=== PATIENT | male | born 1965 | race Caucasian/White ===

== ENCOUNTER 2017-07-07 19:07 | Inpatient (IN) | payer BC ==
[2017-07-07] MEDS ORDERED: HEPARIN for IV BOLUS 10,000 UNIT/10 ML VIAL. (19:14)
[2017-07-07 19:16] LABS: ADD MAN DIFF? NO
[2017-07-07 19:18] LABS: BASO # 0.1 x10^3/uL (0.0-0.2); BASO % 1 % (0-3); EOS # 0.4 x10^3/uL (0.0-0.7); EOS % 5 % (0-3); HEMATOCRIT 38.3 % (39.0-53.0); LYMPH # 2.3 x10^3/uL (1.0-4.8); LYMPH % 32 % (24-48); MEAN CORPUSCULAR HEMOGLOBIN 30 pg (25-35); MEAN CORPUSCULAR HGB CONC 34 g/dL (31-37); MEAN CORPUSCULAR VOLUME 88 fL (79-100); MONO # 0.4 x10^3/uL (0.0-1.1); MONO % 5 % (0-9); NEUT % 56 % (31-73); PLATELET COUNT 265 x10^3/uL (140-400); RED BLOOD COUNT 4.34 x10^6/uL (4.30-5.70); RED CELL DISTRIBUTION WIDTH 13.2 % (11.5-14.5); WHITE BLOOD COUNT 7.1 x10^3/uL (4.0-11.0)
[2017-07-07] MEDS: AMIODARONE 150 MG in IV DEXTROSE 5% 100 ML IV (19:24)
[2017-07-07] MEDS: ASPIRIN CHEWABLE 81 MG TABLET. PO (19:25)
[2017-07-07 19:28] LABS: TROPONIN BY ISTAT 0.02 ng/ml (<0.08)
[2017-07-07 19:28] LABS: INR 1.1 (0.8-1.1); PARTIAL THROMBOPLASTIN TIME 25 SEC (24-38); PROTHROMBIN TIME PATIENT 13.8 SEC (11.7-14.0)
[2017-07-07] MEDS ORDERED: MORPHINE SULFATE 4 MG/ML DISP.SYRIN. IV (19:30)
[2017-07-07] MEDS ORDERED: ONDANSETRON PF 4 MG/2 ML VIAL. IV (19:30)
[2017-07-07] MEDS ORDERED: ACETAMINOPHEN 325 MG TABLET. PO (19:30)
[2017-07-07 19:32] LABS: D-DIMER 0.32 ug/mlFEU (0.00-0.50)
[2017-07-07 19:35] LABS: ANION GAP 9 (6-14); BLOOD UREA NITROGEN 25 mg/dL (8-26); CALCIUM 9.1 mg/dL (8.5-10.1); CARBON DIOXIDE 28 mmol/L (21-32); CHLORIDE 104 mmol/L (98-107); GFR 78.8; GLUCOSE 136 mg/dL (70-99); POTASSIUM 3.7 mmol/L (3.5-5.1); SODIUM 141 mmol/L (136-145)
[2017-07-07 19:38] LABS: TROPONINI < 0.017 ng/mL (0.000-0.055)
[2017-07-07 19:40] LABS: NT-PRO BNP 205 pg/mL (0-124)
[2017-07-07] MEDS: AMIODARONE 900 MG in IV DEXTROSE 5% 500 ML IV (19:51)
[2017-07-07 20:02] LABS: THYROID STIM HORMONE (TSH) 3.613 uIU/mL (0.358-3.74)
[2017-07-07] MEDS ORDERED: AMIODARONE 450 MG in IV DEXTROSE 5% 250 ML IV (21:45)
[2017-07-07 23:12] LABS: TROPONINI 0.929 ng/mL (0.000-0.055)
[2017-07-08 01:30] LABS: ADD MAN DIFF? NO
[2017-07-08 01:52] LABS: TROPONINI 1.156 ng/mL (0.000-0.055)
[2017-07-08 03:23] LABS: BASO % 0 % (0-3); EOS # 0.2 x10^3/uL (0.0-0.7); EOS % 4 % (0-3); HEMATOCRIT 36.8 % (39.0-53.0); HEMOGLOBIN 12.6 g/dL (13.0-17.5); LYMPH # 2.1 x10^3/uL (1.0-4.8); LYMPH % 31 % (24-48); MEAN CORPUSCULAR HEMOGLOBIN 30 pg (25-35); MEAN CORPUSCULAR HGB CONC 34 g/dL (31-37); MEAN CORPUSCULAR VOLUME 88 fL (79-100); MONO # 0.4 x10^3/uL (0.0-1.1); MONO % 6 % (0-9); NEUT # 3.9 x10^3uL (1.8-7.7); NEUT % 59 % (31-73); PLATELET COUNT 262 x10^3/uL (140-400); RED BLOOD COUNT 4.18 x10^6/uL (4.30-5.70); RED CELL DISTRIBUTION WIDTH 13.2 % (11.5-14.5); WHITE BLOOD COUNT 6.7 x10^3/uL (4.0-11.0)
[2017-07-08 03:44] LABS: ANION GAP 6 (6-14); BLOOD UREA NITROGEN 20 mg/dL (8-26); CALCIUM 8.5 mg/dL (8.5-10.1); CARBON DIOXIDE 28 mmol/L (21-32); CHLORIDE 107 mmol/L (98-107); CREATININE 0.8 mg/dL (0.7-1.3); GFR 101.9; GLUCOSE 97 mg/dL (70-99); POTASSIUM 4.1 mmol/L (3.5-5.1); SODIUM 141 mmol/L (136-145)
[2017-07-08] MEDS ORDERED: hydrALAZINE 20 MG/ML VIAL. IVP (09:15)
[2017-07-08] MEDS ORDERED: DOCUSATE SODIUM 100 MG CAPSULE. PO (09:15)
[2017-07-08] MEDS ORDERED: traMADol 50 MG TABLET PO (09:15)
[2017-07-08] MEDS ORDERED: MORPHINE SULFATE 4 MG/ML DISP.SYRIN. IV (09:15)
[2017-07-08] MEDS: CETIRIZINE HCL 10 MG TABLET. PO (10:00)
[2017-07-08] MEDS ORDERED: LIDOCAINE 2% 20 ML VIAL. (12:26)
[2017-07-08] MEDS ORDERED: IOHEXOL 300 MG/ML 100ML VIAL. (12:26)
[2017-07-08] MEDS ORDERED: NITROGLYCERIN 200 MCG/2 ML SYRINGE FOR CATH/VASC LAB. (12:34)
[2017-07-08] MEDS ORDERED: VERAPAMIL 5 MG/2 ML VIAL. (12:34)
[2017-07-08] MEDS ORDERED: MIDAZOLAM HCL/PF 5 MG/5 ML VIAL. (12:34)
[2017-07-08] MEDS ORDERED: fentaNYL PF VIAL 100 MCG/2 ML VIAL (12:34)
[2017-07-08] MEDS ORDERED: HEPARIN for IV BOLUS 10,000 UNIT/10 ML VIAL. (12:34)
[2017-07-08] MEDS ORDERED: VERAPAMIL 5 MG/2 ML VIAL. IART (13:15)
[2017-07-08] MEDS ORDERED: NITROGLYCERIN 200 MCG/2 ML SYRINGE FOR CATH/VASC LAB. IART (13:15)
[2017-07-08] MEDS: LIDOCAINE WITH 8.4% SOD BICARB 3 ML DISP.SYRIN. IJ (13:15)
[2017-07-08] MEDS ORDERED: HEPARIN for IV BOLUS 10,000 UNIT/10 ML VIAL. IART (13:15)
[2017-07-08] MEDS ORDERED: CONTRAST GIVEN MC (13:30)
[2017-07-08] MEDS: LIDOCAINE 2% 20 ML VIAL. IJ (13:43)
[2017-07-08] MEDS: MIDAZOLAM HCL/PF 5 MG/5 ML VIAL. IV (13:44)
[2017-07-08] MEDS: IOHEXOL 300 MG/ML 100ML VIAL. IART (13:46)
[2017-07-08] MEDS: fentaNYL PF VIAL 100 MCG/2 ML VIAL IV (13:46)
[2017-07-08] MEDS: ENOXAPARIN 40 MG/0.4 ML SYRINGE. SQ (16:53)
[2017-07-08] MEDS: MEXILETINE HCL 200 MG CAPSULE PO (21:35)
[2017-07-08 22:12] LABS: MRSA BY PCR Negative (Negative)
[2017-07-09 03:54] LABS: ADD MAN DIFF? NO
[2017-07-09 03:55] LABS: BASO % 0 % (0-3); EOS # 0.1 x10^3/uL (0.0-0.7); EOS % 2 % (0-3); HEMATOCRIT 37.8 % (39.0-53.0); LYMPH # 1.9 x10^3/uL (1.0-4.8); LYMPH % 21 % (24-48); MEAN CORPUSCULAR HEMOGLOBIN 30 pg (25-35); MEAN CORPUSCULAR HGB CONC 35 g/dL (31-37); MEAN CORPUSCULAR VOLUME 88 fL (79-100); MONO # 0.5 x10^3/uL (0.0-1.1); MONO % 6 % (0-9); NEUT # 6.5 x10^3uL (1.8-7.7); NEUT % 71 % (31-73); PLATELET COUNT 259 x10^3/uL (140-400); RED BLOOD COUNT 4.32 x10^6/uL (4.30-5.70); RED CELL DISTRIBUTION WIDTH 13.1 % (11.5-14.5); WHITE BLOOD COUNT 9.1 x10^3/uL (4.0-11.0)
[2017-07-09 04:17] LABS: ANION GAP 4 (6-14); BLOOD UREA NITROGEN 16 mg/dL (8-26); CALCIUM 8.8 mg/dL (8.5-10.1); CARBON DIOXIDE 30 mmol/L (21-32); CHLORIDE 108 mmol/L (98-107); GFR 78.8; GLUCOSE 97 mg/dL (70-99); POTASSIUM 4.4 mmol/L (3.5-5.1); SODIUM 142 mmol/L (136-145)
[2017-07-09] MEDS: MEXILETINE HCL 200 MG CAPSULE PO ×3 (06:08→20:33)
[2017-07-09] MEDS ORDERED: LIDOCAINE 2%/EPI 1:100,000 20 ML VIAL. ×2 (08:10→09:15)
[2017-07-09] MEDS ORDERED: MIDAZOLAM HCL/PF 2 MG/2 ML VIAL. ×2 (08:10→08:23)
[2017-07-09] MEDS ORDERED: fentaNYL PF VIAL 100 MCG/2 ML VIAL ×2 (08:10→08:23)
[2017-07-09] MEDS ORDERED: IOHEXOL 300 MG/ML 100ML VIAL. (08:51)
[2017-07-09] MEDS ORDERED: CONTRAST GIVEN MC (09:15)
[2017-07-09] MEDS: MIDAZOLAM HCL/PF 2 MG/2 ML VIAL. IV (10:45)
[2017-07-09] MEDS: fentaNYL PF VIAL 100 MCG/2 ML VIAL IV (10:47)
[2017-07-09] MEDS: LIDOCAINE 2%/EPI 1:100,000 20 ML VIAL. IJ (10:47)
[2017-07-09] MEDS: BACITRACIN 50,000 UNIT in IV NORMAL SALINE 250ML 250 ML IRR (10:48)
[2017-07-09] MEDS: IOHEXOL 300 MG/ML 100ML VIAL. IART (10:48)
[2017-07-09] MEDS: ONDANSETRON PF 4 MG/2 ML VIAL. IV ×2 (11:15→15:32)
[2017-07-09] MEDS ORDERED: ONDANSETRON PF 4 MG/2 ML VIAL. (11:21)
[2017-07-09] MEDS ORDERED: oxyCODONE/APAP 5/325 1 TAB TABLET PO (11:30)
[2017-07-09] MEDS ORDERED: ONDANSETRON PF 4 MG/2 ML VIAL. IV (11:30)
[2017-07-09] MEDS ORDERED: NO ANTICOAGULANT THERAPY. MC (11:30)
[2017-07-09] MEDS: ENOXAPARIN 40 MG/0.4 ML SYRINGE. SQ (12:04)
[2017-07-09] MEDS: CETIRIZINE HCL 10 MG TABLET. PO (12:32)
[2017-07-09] MEDS: SOTALOL 80 MG TABLET. PO (12:33)
[2017-07-09] MEDS ORDERED: 0.9 % SODIUM CHLORIDE 10 ML DISP.SYRIN. IV (15:15)
[2017-07-09] MEDS: ACETAMINOPHEN 325 MG TABLET. PO (20:38)
[2017-07-10] MEDS: ACETAMINOPHEN 325 MG TABLET. PO ×2 (03:29→21:30)
[2017-07-10] MEDS: MEXILETINE HCL 200 MG CAPSULE PO ×3 (05:25→21:30)
[2017-07-10 06:19] LABS: ADD MAN DIFF? NO
[2017-07-10 06:35] LABS: BASO % 0 % (0-3); EOS # 0.1 x10^3/uL (0.0-0.7); EOS % 1 % (0-3); HEMATOCRIT 35.4 % (39.0-53.0); LYMPH # 1.9 x10^3/uL (1.0-4.8); LYMPH % 26 % (24-48); MEAN CORPUSCULAR HEMOGLOBIN 30 pg (25-35); MEAN CORPUSCULAR HGB CONC 34 g/dL (31-37); MEAN CORPUSCULAR VOLUME 88 fL (79-100); MONO # 0.6 x10^3/uL (0.0-1.1); MONO % 8 % (0-9); NEUT # 4.7 x10^3uL (1.8-7.7); NEUT % 64 % (31-73); PLATELET COUNT 219 x10^3/uL (140-400); RED BLOOD COUNT 4.04 x10^6/uL (4.30-5.70); RED CELL DISTRIBUTION WIDTH 12.9 % (11.5-14.5); WHITE BLOOD COUNT 7.3 x10^3/uL (4.0-11.0)
[2017-07-10 06:38] LABS: ANION GAP 6 (6-14); BLOOD UREA NITROGEN 18 mg/dL (8-26); CALCIUM 8.5 mg/dL (8.5-10.1); CARBON DIOXIDE 28 mmol/L (21-32); CHLORIDE 107 mmol/L (98-107); CREATININE 1.1 mg/dL (0.7-1.3); GFR 70.6; GLUCOSE 90 mg/dL (70-99); POTASSIUM 3.6 mmol/L (3.5-5.1); SODIUM 141 mmol/L (136-145)
[2017-07-10] MEDS: CETIRIZINE HCL 10 MG TABLET. PO (08:56)
[2017-07-10] MEDS: SOTALOL 80 MG TABLET. PO ×2 (08:58→21:30)
[2017-07-10 12:59] LABS: CHOLESTEROL 142 mg/dL (0-200); CHOLESTEROL/HDL RATIO 2.5; HDLC 56 mg/dL (40-60); LDLC 82 mg/dL (0-100); NON-HDL CHOLESTEROL 86 mg/dL (0-129); TRIGLYCERIDES 18 mg/dL (0-150); VLDLC 4 mg/dL (0-40)
[2017-07-11 03:40] LABS: ADD MAN DIFF? NO
[2017-07-11 03:48] LABS: BASO % 1 % (0-3); EOS # 0.2 x10^3/uL (0.0-0.7); EOS % 3 % (0-3); HEMATOCRIT 35.9 % (39.0-53.0); HEMOGLOBIN 12.4 g/dL (13.0-17.5); LYMPH # 2.2 x10^3/uL (1.0-4.8); LYMPH % 30 % (24-48); MEAN CORPUSCULAR HEMOGLOBIN 30 pg (25-35); MEAN CORPUSCULAR HGB CONC 35 g/dL (31-37); MEAN CORPUSCULAR VOLUME 88 fL (79-100); MONO # 0.5 x10^3/uL (0.0-1.1); MONO % 7 % (0-9); NEUT # 4.4 x10^3uL (1.8-7.7); NEUT % 60 % (31-73); PLATELET COUNT 214 x10^3/uL (140-400); RED CELL DISTRIBUTION WIDTH 12.8 % (11.5-14.5); WHITE BLOOD COUNT 7.3 x10^3/uL (4.0-11.0)
[2017-07-11 05:24] LABS: ANION GAP 7 (6-14); BLOOD UREA NITROGEN 21 mg/dL (8-26); CALCIUM 8.5 mg/dL (8.5-10.1); CARBON DIOXIDE 28 mmol/L (21-32); CHLORIDE 107 mmol/L (98-107); GFR 78.8; GLUCOSE 85 mg/dL (70-99); POTASSIUM 3.9 mmol/L (3.5-5.1); SODIUM 142 mmol/L (136-145)
[2017-07-11] MEDS ORDERED: PROPOFOL 20 ML IV (07:13)
[2017-07-11] MEDS: IV RINGERS,LACTATED 1000ML 1,000 ML IV (07:25)
[2017-07-11] MEDS: MEXILETINE HCL 200 MG CAPSULE PO ×2 (09:55→14:49)
[2017-07-11] MEDS: CETIRIZINE HCL 10 MG TABLET. PO (10:11)
[2017-07-11] MEDS: SOTALOL 80 MG TABLET. PO (10:11)
== END 2017-07-11 15:15 | disposition home or self-care (01) | DRG 222 ==
LOC: ER 19:07 → 1 WEST ICU 19:25 → 2 SOUTH 07-09 11:43
PROC: 4A023N7 Measurement of Cardiac Sampling and Pressure, Left Heart, Percutaneous Approach (ICD-10-PCS; principal; 2017-07-08)
PROC: B2111ZZ Fluoroscopy of Multiple Coronary Arteries using Low Osmolar Contrast (ICD-10-PCS; 2017-07-08)
PROC: B2151ZZ Fluoroscopy of Left Heart using Low Osmolar Contrast (ICD-10-PCS; 2017-07-08)
PROC: 5A2204Z Restoration of Cardiac Rhythm, Single (ICD-10-PCS; 2017-07-08)
PROC: 02HK3KZ Insertion of Defibrillator Lead into Right Ventricle, Percutaneous Approach (ICD-10-PCS; 2017-07-09)
PROC: 0JH608Z Insertion of Defibrillator Generator into Chest Subcutaneous Tissue and Fascia, Open Approach (ICD-10-PCS; 2017-07-09)
PROC: 02H63KZ Insertion of Defibrillator Lead into Right Atrium, Percutaneous Approach (ICD-10-PCS; 2017-07-09)
DX: I21.A1 Myocardial infarction type 2 (principal); Q21.3 Tetralogy of Fallot; I47.2 Ventricular tachycardia; Q25.6 Stenosis of pulmonary artery; I37.1 Nonrheumatic pulmonary valve insufficiency; I45.10 Unspecified right bundle-branch block; F10.10 Alcohol abuse, uncomplicated; Z82.49 Family history of ischemic heart disease and other diseases of the circulatory system; Z87.74 Personal history of (corrected) congenital malformations of heart and circulatory system; Z88.6 Allergy status to analgesic agent; Z88.8 Allergy status to other drugs, medicaments and biological substances
CPT/HCPCS: 33230; 36415; 71045; 71046; 80048; 80061; 83880; 84443; 84484; 85025; 85379; 85610; 85730; 87641; 92960; 93005; 93306; 93458; 96365; 96367; 99152; 99153; 99285-25; C1721; C1769; C1771; C1892; C1895; G0269; J0282; J0690; J1644; J1650; J2250; J2405; J2704; J3010; J3490; J7050; J7120; Q9967

== ENCOUNTER → 2020-12-30 | Outpatient (CLI) | payer BC ==
[2017-07-11 11:00] VITALS: BP 104/79
[~2020-12-30] MED LIST: CETI10TA16 PO; MEXI200C PO; REGADENOSON 0.4 MG/5 ML DISP.SYRIN. IV ONE; SOTA80TA20 PO
--- NOTE | 2020-12-30 13:08 | RAD ---
MR#: [id number] Date of Study: 12/30/2020 Ordering Physician: CRISTI BOWLES, Referring Physician: RENNY MCGUIRE Tech: EN Dominguez, TONA (R) (N) APPROVED REPORT Test Type: Pharmacological Stress Nurse/Tech: Nya Alarcon R.N. Test Indications: cad Cardiac History: chlidhood surgery for Tetralogy of Fallot, ht, pacemaker Medications: see ehr Medical History: see ehr Resting ECG: incomplete RBBB, sr Resting Heart Rate: 61 bpm Resting Blood Pressure: 119/73mmHg Pretest Chest Pain: No chest pain Nurse/Tech Notes lungs cta, heart tones regular Consent: The procedure was explained to the patient in lay terms. Informed consent was witnessed. Marky eout was entered into [employer]. History and Stress Test performed by RT Yoli (Beka) (N) Pharm. Details Pharmacologic stress testing was performed using 0.4mg per 5ml of regadenoson given intravenously ove r 7-10 seconds. Stress Symptoms No chest pain or symptoms. POST EXERCISE Reason for Termination: Infusion complete Target HR: No Max HR: 86 bpm Max Blood Pressure: 122/63mmHg Chest Pain: No. Arrhythmia: No. ST Change: No. INTERPRETATION Stress EKG Conclusion: The resting EKG shows a sinus rhythm, incomplete right bundle branch block and nonspecific T wave changes. The stress EKG shows no significant changes from baseline. No EKG evidence of stress-induced ischemia. Imaging Protocol IMAGE PROTOCOL: Rest Tc-99m/stress Tc-99m 1 day Rest: Stress: Viability: Radiopharm.Tc99m [id number] Sestamibi Rqtm25oVt 33mCi Img Date 12/30/2020 12/30/2020 Inj-Img [id number]. 60min. Rest Admin Site:IV - Right AntecubitalAdministrator:EN Dominguez, TONA (R)(N) Stress Admin Site: IV - Right AntecubitalAdministrator: RT Anh Kent)(N) STRESS DATA End Diast. Vol.79.0mlLVEDV index BSA46.0ml End Syst. Vol.22.0mlLVESV index BSA13.0ml Myocardial Ktvt952.0gEject. Imtjaydn65.0% Stress Scores Regional WT0.00Summed WT1.00 Regional WM0.00Summed WM11.00 LV Perfusion The stress images show a slight inferior septal defect. The rest images show a slight inferior septal defect. Nuclear imaging shows no reversible ischemia. 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 Wall Motion Left ventricular systolic function is normal with an ejection fraction of greater than 70%. LV Perf. Quant 17 Seg. SSS0.00 17 Seg. SRS0.00 17 Seg. SDS0.00 Stress Defect Extent (% LAD)0.00Rest Defect Extent (% LAD)0.00Rev. Defect Extent (% LAD)0.00 Stress Defect Extent (% LCX) 0.00Rest Defect Extent (% LCX)0.00Rev. Defect Extent (% LCX)0.00 Stress Defect Extent (% RCA)0.00Rest Defect Extent (% RCA)0.00Rev. Defect Extent (% RCA)0.00 Stress Defect Extent (% ION)0.00Rest Defect Extent (% ION)0.00Rev. Defect Extent (% ION)0.00 Conclusion 1. Abnormal baseline EKG but no EKG evidence of stress-induced ischemia. 2. Nuclear imaging shows no reversible ischemia. 3. Nuclear imaging shows a small fixed inferior septal defect most consistent with an attenuation art ifact. 4. Normal left ventricular systolic function with a ejection fraction of greater than 70%. 5. Moderately low risk to low risk Lexiscan nuclear stress test. Signed by : Timo Mondragon MD Electronically Approved : 12/30/2020 13:07:54
== END ==
LOC: NM 08:09
PROVIDERS: ATTEND Internal Medicine Cardiovascular Disease
DX: R94.31 Abnormal electrocardiogram [ECG] [EKG] (principal); I47.2 Ventricular tachycardia
CPT/HCPCS: 78452; 93017; A9500; J2785